=== PATIENT | female | born 1990 | race Caucasian/White ===

== ENCOUNTER 2018-07-16 20:06 | Emergency (ER) | payer SELFPAY ==
[~2018-07-16] VITALS: Ht 157.5 cm; Wt 99.8 kg
[2018-07-16 20:28] VITALS: BP 126/83
--- NOTE | 2018-07-16 21:02 | PHYS DOC ---
Adult General Chief Complaint Chief Complaint: COUGH HPI HPI Patient is a 28 year old female who presents for evaluation of sore throat since waking up this morning. She reports has had a cough over the last several days. States she has felt herself wheeze over the last couple of days, she smokes cigarettes. Denies fevers or vomiting. Review of Systems Review of Systems Constitutional: Denies fever or chills [] Eyes: Denies change in visual acuity, redness, or eye pain [] HENT: Reports sore throat [] Respiratory: Reports cough Cardiovascular: No additional information not addressed in HPI [] GI: Denies abdominal pain, nausea, vomiting, bloody stools or diarrhea [] Musculoskeletal: Denies back pain or joint pain [] Integument: Denies rash or skin lesions [] Neurologic: Denies headache, focal weakness or sensory changes [] Endocrine: Denies polyuria or polydipsia [] All other systems were reviewed and found to be within normal limits, except as documented in this note. Physical Exam Physical Exam Constitutional: Well developed, well nourished, no acute distress, non-toxic appearance. [] HENT: Normocephalic, atraumatic, oropharynx erythematous, bilateral tonsillar swelling, no exudates] Neck: Normal range of motion, no tenderness, supple, no stridor. [] Cardiovascular:Heart rate regular rhythm, no murmur [] Lungs & Thorax: Bilateral breath sounds clear to auscultation [] Skin: Warm, dry, no erythema, no rash. [] Neurologic: Alert and oriented X 3, normal motor function, normal sensory function, no focal deficits noted. [] Psychologic: Affect normal, judgement normal, mood normal. [] Current Patient Data Lab Values RAPID STREP POSITIVE EKG EKG [] Radiology/Procedures Radiology/Procedures [] Course & Med Decision Making Course & Med Decision Making Pertinent Labs and Imaging studies reviewed. (See chart for details) [Strep positive, patient placed on antibiotics. Stable for discharge home.] Dragon Disclaimer Dragon Disclaimer This electronic medical record was generated, in whole or in part, using a voice recognition dictation system. Departure Departure Impression: Primary Impression: Strep pharyngitis Disposition: 01 HOME, SELF-CARE Condition: STABLE Referrals: NO PCP (PCP) Patient Instructions: Strep Throat Scripts Amoxicillin (AMOXICILLIN) 500 Mg Tablet 1 TAB PO TID, #30 TAB Prov: TOMMY BERRY APRN 07/16/18 TOMMY BERRY APRN Jul 16, 2018 21:02
[2018-07-16] MEDS ORDERED: AMOX500T PO (21:12)
== END 2018-07-16 21:25 | disposition home or self-care (01) ==
LOC: ER 20:06
DX: J02.0 Streptococcal pharyngitis (principal); B95.5 Unspecified streptococcus as the cause of diseases classified elsewhere; F17.210 Nicotine dependence, cigarettes, uncomplicated
CPT/HCPCS: 87880; 99283

== ENCOUNTER 2018-10-16 17:32 | Inpatient (IN) | payer SELFPAY ==
[~2018-10-16] VITALS: Ht 157.5 cm; Wt 117.0 kg
[~2018-10-16 17:32] MED LIST: AMOX500T PO
[2018-10-16] MEDS ORDERED: HYDROcodone/APAP 5/325MG 1 TAB TABLET PO ONE (18:00)
[2018-10-16] MEDS ORDERED: MORPHINE SULFATE 4 MG/ML VIAL. ONE (18:09)
[2018-10-16] MEDS ORDERED: MORPHINE SULFATE 2 MG/ML VIAL. IV ONE (18:15)
[2018-10-16] MEDS ORDERED: MORPHINE SULFATE 4 MG/ML VIAL. IV ONE (18:15)
--- NOTE | 2018-10-16 19:19 | PHYS DOC ---
Past Medical History Past Medical History: Asthma Additional Past Medical Histor: PVC Additional Past Surgical Histo: HEART ABLATION Alcohol Use: Occasionally Drug Use: None Adult General Chief Complaint Chief Complaint: MECHANICAL FALL HPI HPI Patient is a 28 year old female who presents with was at the skating rink when she fell and landed on her left leg. Patient is complaining of left mid and lower ba pain. Review of Systems Review of Systems Constitutional: Denies fever or chills [] Eyes: Denies change in visual acuity, redness, or eye pain [] HENT: Denies nasal congestion or sore throat [] Respiratory: Denies cough or shortness of breath [] Cardiovascular: No additional information not addressed in HPI [] GI: Denies abdominal pain, nausea, vomiting, bloody stools or diarrhea [] : Denies dysuria or hematuria [] Musculoskeletal: Left lower leg pain. Denies back pain or joint pain [] Integument: Denies rash or skin lesions [] Neurologic: Denies headache, focal weakness or sensory changes [] Endocrine: Denies polyuria or polydipsia [] All other systems were reviewed and found to be within normal limits, except as documented in this note. Current Medications Current Medications Current Medications Medications (Trade) Dose Ordered Sig/Lorenza Start Time Stop Time Status Last Admin Dose Admin Acetaminophen/ Hydrocodone Bitart (Lortab 5/325) 1 tab 1X ONCE 10/16/18 18:00 10/16/18 18:19 DC Morphine Sulfate (Morphine Sulfate) 2 mg 1X ONCE 10/16/18 18:15 10/16/18 18:16 DC Allergies Allergies Allergies Coded Allergies Type Severity Reaction Last Updated Verified No Known Drug Allergies 07/16/18 No Physical Exam Physical Exam Constitutional: Well developed, well nourished, no acute distress, non-toxic appearance. [] HENT: Normocephalic, atraumatic, bilateral external ears normal, oropharynx moist, no oral exudates, nose normal. [] Eyes: PERRLA, EOMI, conjunctiva normal, no discharge. [] Neck: Normal range of motion, no tenderness, supple, no stridor. [] Cardiovascular:Heart rate regular rhythm, no murmur [] Lungs & Thorax: Bilateral breath sounds clear to auscultation [] Abdomen: Bowel sounds normal, soft, Left tib fib pain tenderness, no masses, no pulsatile masses. [] Skin: Warm, dry, no erythema, no rash. [] Back: No tenderness, no CVA tenderness. [] Extremities: No tenderness, no cyanosis, no clubbing, ROM intact, no edema. [] Neurologic: Alert and oriented X 3, normal motor function, normal sensory function, no focal deficits noted. [] Psychologic: Affect normal, judgement normal, mood normal. [] Current Patient Data Vital Signs Vital Signs Date Time Temp Pulse Resp B/P (MAP) Pulse Ox O2 Delivery O2 Flow Rate FiO2 10/16/18 19:00 68 20 99 10/16/18 17:43 100.3 136/73 (94) Room Air 100.3 EKG EKG [] Radiology/Procedures Radiology/Procedures TIB FIB, ANKLE Course & Med Decision Making Course & Med Decision Making Patient is a 28 year old female who presents with was at the skating rink when she fell and landed on her left leg. Patient is complaining of left mid and lower ba pain. Patient has range of motion in her ankle and can wiggle her toes but is painful. Patient has tenderness at mid tibia and at lower proximal fibula area. No deformity seen or felt. She is rating her pain a 10 out of 10 and she is tearful. There is no swelling or bruising seen to the leg. Patient has strong intact pedal pulse. Cap refill is less than 3 seconds. Patient denies any numbness or tingling. Skin pink warm and dry. X-ray shows a 1/3 spiral fracture of distal tibia and a spiral fracture of the proximal Fibula. Xray read by Dr Avendaño. 1944: Spoken to Dr. Loyd he states to admit the patient to him and he is putting in admit orders. Dr. Loyd states to place a long leg splint. Dragon Disclaimer Dragon Disclaimer This electronic medical record was generated, in whole or in part, using a voice recognition dictation system. Departure Departure Impression: Primary Impression: Tibia/fibula fracture Disposition: ADMITTED INPATIENT Admitting Physician: Other Condition: STABLE Referrals: NO PCP (PCP) Problem Qualifiers Primary Impression: Tibia/fibula fracture Encounter type: initial encounter Fracture type: closed Laterality: left Qualified Codes: S82.202A - Unspecified fracture of shaft of left tibia, initial encounter for closed fracture; S82.402A - Unspecified fracture of shaft of left fibula, initial encounter for closed fracture CAMRYN HOLCOMB APRN Oct 16, 2018 19:19
[2018-10-16] MEDS ORDERED: ONDANSETRON PF 4 MG/2 ML VIAL. IV PRN (20:00)
[2018-10-16] MEDS ORDERED: MAGNESIUM HYDROXIDE 2,400 MG/30 ML ORAL.SUSP. PO PRN (20:00)
[2018-10-16] MEDS ORDERED: ZOLPIDEM 5 MG TABLET. PO PRN (20:00)
[2018-10-16] MEDS ORDERED: oxyCODONE/APAP 5/325 1 TAB TABLET PO PRN (20:00)
[2018-10-16] MEDS ORDERED: 0.9 % SODIUM CHLORIDE 10 ML DISP.SYRIN. IV PRN (20:00)
[2018-10-16] MEDS ORDERED: BISACODYL 10 MG SUPP.RECT. PR PRN (20:00)
[2018-10-16] MEDS ORDERED: DEXTROSE 50% 25 GM / 50ML DISP.SYRIN. IV PRN (20:00)
[2018-10-16] MEDS ORDERED: MORPHINE SULFATE 4 MG/ML VIAL. IV PRN (20:00)
--- NOTE | 2018-10-16 20:10 | PDOC ---
Provider Note Provider Note S82.242A Displaced spiral fracture of shaft of left tibia, initial encounter for closed fracture S82.442A Displaced spiral fracture of shaft of left fibula, initial encounter for closed fracture THEODORA CANCINO MD Oct 16, 2018 20:10
--- NOTE | 2018-10-16 20:20 | RAD ---
2 view left ankle 10/16/2017 Clinical indication: Left ankle injury and pain. COMPARISON: None. FINDINGS: There is a spiral fracture of the junction distal 3rd tibial diaphysis with mild posterior displacement of the dominant distal fracture fragment. There is a nonstandard AP view of the right ankle with no definite ankle fracture. Mild tibiotalar osteoarthritis with dorsal osteophytes. IMPRESSION: 1. Mildly displaced spiral fracture of the distal tibia. 2. Somewhat limited evaluation of the ankle due to nonstandard AP view, however no definite ankle fracture. Electronically signed by: Venancio Wiggins MD (10/16/2018 8:17 PM) [facility]
--- NOTE | 2018-10-16 20:28 | RAD ---
2 view left tibia and fibula 10/16/2017 CLINICAL INDICATION: Left calf injury and pain. COMPARISON: Same day left ankle. FINDINGS: There is an oblique fracture of the proximal fibular diaphysis with mild anterior displacement and posterior angulation of the distal fracture fragment. IMPRESSION: Mildly displaced and angulated fracture of the proximal fibula. Electronically signed by: Venancio Wiggins MD (10/16/2018 8:25 PM) [facility]
[2018-10-16 20:45] VITALS: BP 130/50
--- NOTE | 2018-10-16 21:00 | NUR ---
Received patient from ER to room 442 per cart. Admitting dx: fracture of left tib/fib. Patient states she was rolling skating with family and she heard a pop in her leg and she fell. Patient is allergic to mushrooms. Patient has NKDA. Patient is A&Ox4. Patient is very emotional and crying on admission. 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 Left leg has splint on and leg is elevated on pillow. Patient has a purewick in place for urine elimination. Patient states that leg is too painful to use bedpan. NPO. Possible surgery on Wednesday. Will continue to monitor.
[2018-10-16] MEDS: KETOROLAC 30 MG/ML VIAL. IV SCH (21:55)
[2018-10-16 22:29] LABS: HEMATOCRIT 38.4 % (36.0-47.0); HEMOGLOBIN 12.6 g/dL (12.0-15.5); RED BLOOD COUNT 4.45 x10^6/uL (3.50-5.40); RED CELL DISTRIBUTION WIDTH 13.1 % (11.5-14.5); WHITE BLOOD COUNT 18.4 x10^3/uL (4.0-11.0)
[2018-10-16 22:49] LABS: ALBUMIN 3.5 g/dL (3.4-5.0); ALBUMIN/GLOBULIN RATIO 0.9 (1.0-1.7); CALCIUM 8.9 mg/dL (8.5-10.1); CREATININE 0.7 mg/dL (0.6-1.0); GFR 101.1; POTASSIUM 3.8 mmol/L (3.5-5.1); TOTAL BILIRUBIN 0.4 mg/dL (0.2-1.0); TOTAL PROTEIN 7.2 g/dL (6.4-8.2)
[2018-10-16] MEDS: DOCUSATE SODIUM 100 MG CAPSULE. PO SCH (22:52)
[2018-10-16] MEDS: oxyCODONE/APAP 5/325 1 TAB TABLET PO PRN (22:53)
[2018-10-16 23:00] VITALS: BP 136/64
[2018-10-16] MEDS: fentaNYL PF VIAL 100 MCG/2 ML VIAL IV PRN (23:30)
[2018-10-16 23:59] LABS: U PREG PATIENT NEGATIVE (NEG)
[2018-10-17] VITALS (12 sets, daily range): BP systolic 95–152; BP diastolic 56–89
[2018-10-17] MEDS: KETOROLAC 30 MG/ML VIAL. IV SCH ×5 (02:00→18:00)
[2018-10-17] MEDS: fentaNYL PF VIAL 100 MCG/2 ML VIAL IV PRN ×9 (03:42→23:12)
[2018-10-17] MEDS ORDERED: MORPHINE SULFATE 4 MG/ML VIAL. IV PRN (06:45)
[2018-10-17] MEDS ORDERED: fentaNYL PF VIAL 100 MCG/2 ML VIAL IV PRN (06:45)
[2018-10-17] MEDS ORDERED: IV RINGERS,LACTATED 1000ML 1,000 ML IV SCH (06:45)
[2018-10-17] MEDS ORDERED: LIDOCAINE 1% PF 2 ML VIAL. ID PRN (06:45)
[2018-10-17] MEDS ORDERED: ONDANSETRON PF 4 MG/2 ML VIAL. IV PRN (06:45)
[2018-10-17] MEDS ORDERED: HYDROmorphone 2 MG/ML VIAL IV PRN (06:45)
[2018-10-17] MEDS ORDERED: PROCHLORPERAZINE 10 MG/2 ML VIAL. IV PRN (06:45)
[2018-10-17] MEDS: DOCUSATE SODIUM 100 MG CAPSULE. PO SCH ×2 (09:00→20:55)
--- NOTE | 2018-10-17 09:24 | NUR ---
SW reviewed pt's medical chart and evaluated for dc needs. Pt is from home and was admitted for a tibia fibula fracture. PT/OT has not been ordered and there are no dc needs at this time. Pt does not have insurance and will not qualify for services unless she can pay out of pocket. SW will be available if pt's condition changes and there is a need for services.
[2018-10-17] MEDS ORDERED: ONDANSETRON PF 4 MG/2 ML VIAL. ONE (13:31)
[2018-10-17] MEDS ORDERED: LIDOCAINE 2% PF 5 ML VIAL. ONE (13:31)
[2018-10-17] MEDS ORDERED: DEXAMETHASONE SOD PHOS 20 MG/5 ML VIAL. ONE (13:31)
[2018-10-17] MEDS ORDERED: ROCURONIUM 50 MG/5 ML VIAL. ONE (13:31)
[2018-10-17] MEDS ORDERED: PROPOFOL 20 ML IV ONE (13:31)
[2018-10-17] MEDS ORDERED: SUCCINYLCHOLINE 200 MG/10 ML VIAL. ONE (13:32)
[2018-10-17] MEDS ORDERED: diphenhydrAMINE 50 MG/ML VIAL IVP PRN (15:45)
--- NOTE | 2018-10-17 16:30 | NUR ---
Pt to OR by bed. Family at bedside but will not be waiting downstairs. Report given to LINCOLN Moon. Clamped LR bag sent with Pt. Pt decided to sign consents and she did so right before being transferred downstairs.
--- NOTE | 2018-10-17 17:06 | PDOC1 ---
History and Physical Date of Admission Date of Admission DATE: 10/17/18 TIME: 17:01 Identification/Chief Complaint Chief Complaint Left leg pain Source Source: Chart review, Patient History of Present Illness History of Present Illness 28-year-old who fell roller skating and injured her left leg. X-rays show a displaced tib-fib fracture. She denies other injury. Past Medical History Past Medical History She had a cardiac ablation remotely. Past Surgical History Past Surgical History Cardiac ablation Family History Family History She is not currently employed. Her last job was at a [employer] Family History: Diabetes Social History Smoke: <1 pack per day Current Problem List Problem List Problems Medical Problems: (1) Tibia/fibula fracture Status: Acute Current Medications Current Medications Current Medications Acetaminophen/ Hydrocodone Bitart (Lortab 5/325) 1 tab 1X ONCE PO ; Start 10/16 at 18:00; Stop 10/16/18 at 18:19; Status DC Morphine Sulfate (Morphine Sulfate) 4 mg STK-MED ONCE .ROUTE ; Start 10/16/18 at 18:09; Stop 10/16/18 at 18:10; Status DC Morphine Sulfate (Morphine Sulfate) 2 mg 1X ONCE IV Last administered on at 18:15; Start 10/16/18 at 18:15; Stop 10/16/18 at 18:16; Status DC Morphine Sulfate (Morphine Sulfate) 2 mg 1X ONCE IV Last administered on at 20:12; Start 10/16/18 at 18:15; Stop 10/16/18 at 18:16; Status DC Morphine Sulfate (Morphine Sulfate) 2 mg PRN Q1HR PRN IV PAIN; Start 10/16/18 at 20:00 Fentanyl Citrate (Fentanyl 2ml Vial) 50 mcg PRN Q1HR PRN IV PAIN Last administered on 10/17/18at 14:34; Start 10/16/18 at 20:00 Ondansetron HCl (Zofran) 4 mg PRN Q6HRS PRN IV NAUSEA/VOMITING; Start 10/16/18 at 20:00 Lorazepam (Ativan) 0.5 mg PRN Q4HRS PRN IV ANXIETY / AGITATION; Start 10/16/18 at 20:00 Docusate Sodium (Colace) 100 mg BID PO Last administered on 10/16/18at 22:52; Start 10/16/18 at 21:00 Magnesium Hydroxide (Milk Of Magnesia) 2,400 mg PRN DAILY PRN PO CONSTIPATION; Start 10/16/18 at 20:00 Bisacodyl (Dulcolax Supp) 10 mg PRN DAILY PRN TX CONSTIPATION; Start 10/16/18 at 20:00 Zolpidem Tartrate (Ambien) 5 mg PRN QHS PRN PO INSOMNIA; Start 10/16/18 at 20: 00 Sodium Chloride (Normal Saline Flush) 3 ml QSHIFT PRN IV AFTER MEDS AND BLOOD DRAWS; Start 10/16/18 at 20:00 Dextrose (Dextrose 50%-Water Syringe) 12.5 gm PRN Q15MIN PRN IV SEE COMMENTS; Start 10/16/18 at 20:00 Cefazolin Sodium/ Dextrose 50 ml @ 100 mls/hr 1X PREOP PRN IV SEE COMMENTS; Start 10/16/18 at 20:00; Stop 10/17/18 at 19:59 Oxycodone/ Acetaminophen (Percocet 5/325) 1 tab PRN Q4HRS PRN PO PAIN; Start at 20:00 Ketorolac Tromethamine (Toradol 30mg Vial) 30 mg Q6H IV Last administered on at 21:55; Start 10/16/18 at 20:00; Stop 10/17/18 at 03:18; Status DC Oxycodone/ Acetaminophen (Percocet 5/325) 2 tab PRN Q4HRS PRN PO PAIN Last administered on 10/16/18at 22:53; Start 10/16/18 at 20:30 Ketorolac Tromethamine (Toradol 30mg Vial) 30 mg Q6H IV Last administered on at 12:09; Start 10/17/18 at 04:00; Stop 10/17/18 at 16:29; Status DC Ondansetron HCl (Zofran) 4 mg PRN Q6HRS PRN IV NAUSEA/VOMITING; Start 10/17/18 at 06:45; Stop 10/18/18 at 06:44 Fentanyl Citrate (Fentanyl 2ml Vial) 25 mcg PRN Q5MIN PRN IV MILD PAIN; Start 10/17/18 at 06:45; Stop 10/18/18 at 06:44 Fentanyl Citrate (Fentanyl 2ml Vial) 50 mcg PRN Q5MIN PRN IV MODERATE TO SEVERE PAIN; Start 10/17/18 at 06:45; Stop 10/18/18 at 06:44 Morphine Sulfate (Morphine Sulfate) 1 mg PRN Q10MIN PRN IV SEVERE PAIN; Start 10/17/18 at 06:45; Stop 10/18/18 at 06:44 Ringer's Solution 1,000 ml @ 30 mls/hr Q24H IV Last administered on 10/17/18at 12:23; Start 10/17/18 at 06:45; Stop 10/17/18 at 06:46; Status DC Lidocaine HCl (Xylocaine-Mpf 1% 2ml Vial) 2 ml 1X PRN PRN ID IV START; Start at 06:45; Stop 10/18/18 at 06:44 Hydromorphone HCl (Dilaudid) 0.5 mg PRN Q10MIN PRN IV SEV PAIN, Second choice; Start 10/17/18 at 06:45; Stop 10/18/18 at 06:44 Prochlorperazine Edisylate (Compazine) 5 mg PACU PRN PRN IV NAUSEA, MRX1; Start 10/17/18 at 06:45; Stop 10/18/18 at 06:44 Dexamethasone Sodium Phosphate (Decadron) 20 mg STK-MED ONCE .ROUTE ; Start at 13:31; Stop 10/17/18 at 13:32; Status DC Ondansetron HCl (Zofran) 4 mg STK-MED ONCE .ROUTE ; Start 10/17/18 at 13:31; Stop 10/17/18 at 13:32; Status DC Lidocaine HCl (Lidocaine Pf 2% Vial) 5 ml STK-MED ONCE .ROUTE ; Start 10/17/18 at 13:31; Stop 10/17/18 at 13:32; Status DC Propofol 20 ml @ As Directed STK-MED ONCE IV ; Start 10/17/18 at 13:31; Stop at 13:32; Status DC Rocuronium [place] (Zemuron) 50 mg STK-MED ONCE .ROUTE ; Start 10/17/18 at 13:31 ; Stop 10/17/18 at 13:32; Status DC Succinylcholine Chloride (Anectine) 200 mg STK-MED ONCE .ROUTE ; Start 10/17/18 at 13:32; Stop 10/17/18 at 13:33; Status DC Diphenhydramine HCl (Benadryl) 25 mg PRN Q6HRS PRN IVP ITCHING Last administered on 10/17/18at 16:23; Start 10/17/18 at 15:45 Ketorolac Tromethamine (Toradol 30mg Vial) 30 mg Q6H IV ; Start 10/17/18 at 18: 00; Stop 10/18/18 at 18:01 Active Scripts Active Allergies Allergies: Uncoded Allergies: mushrooms (Allergy, Unknown, 10/17/18) ROS General: No: Chills, Night Sweats Eyes: No Blurry vision, No Decreased vision, No Double vision HEENT: No: Heacaches, Visual Changes Breast: Other (has pierced nipples) Respiratory: YES: Shortness of breath ("because I'm overweight"); No: Cough, Pleuritic Pain Cardiovascular: No Chest Pain, No Palpitations (no current palpitations. Had them remotely before her ablation) Gastrointestinal: No Diarrhea, No Constipation Genitourinary: No Hematuria Physical Exam General: Alert, Cooperative HEENT: Atraumatic Lungs: Normal air movement Heart: RRR Abdomen: Soft Extremities: No clubbing, No cyanosis, Normal pulses, Other (tenderness left leg. Splint intact red toes have intact sensation and motion. Slight swelling of the tibia and fibula, but no evidence of compartment syndrome.) Skin: No rashes, No breakdown, No significant lesion, Other (skin reported as intact over the fracture) Neuro: Normal speech, Normal tone, Sensation intact Psych/Mental Status: Mental status NL, Mood NL Vitals Vitals Vital Signs Date Time Temp Pulse Resp B/P (MAP) Pulse Ox O2 Delivery O2 Flow Rate FiO2 10/17/18 15:04 Room Air 10/17/18 15:00 98.4 65 18 114/58 (76) 97 98.4 Labs Labs Laboratory Tests Test 10/16/18 22:00 10/16/18 23:50 White Blood Count 18.4 x10^3/uL (4.0-11.0) Red Blood Count 4.45 x10^6/uL (3.50-5.40) Hemoglobin 12.6 g/dL (12.0-15.5) Hematocrit 38.4 % (36.0-47.0) Mean Corpuscular Volume 86 fL (79-100) Mean Corpuscular Hemoglobin 28 pg (25-35) Mean Corpuscular Hemoglobin Concent 33 g/dL (31-37) Red Cell Distribution Width 13.1 % (11.5-14.5) Platelet Count 266 x10^3/uL (140-400) Sodium Level 141 mmol/L (136-145) Potassium Level 3.8 mmol/L (3.5-5.1) Chloride Level 104 mmol/L (98-107) Carbon Dioxide Level 27 mmol/L (21-32) Anion Gap 10 (6-14) Blood Urea Nitrogen 11 mg/dL (7-20) Creatinine 0.7 mg/dL (0.6-1.0) Estimated GFR (Cockcroft-Gault) 101.1 BUN/Creatinine Ratio 16 (6-20) Glucose Level 94 mg/dL (70-99) Calcium Level 8.9 mg/dL (8.5-10.1) Total Bilirubin 0.4 mg/dL (0.2-1.0) Aspartate Amino Transf (AST/SGOT) 19 U/L (15-37) Alanine Aminotransferase (ALT/SGPT) 24 U/L (14-59) Alkaline Phosphatase 69 U/L (46-116) Total Protein 7.2 g/dL (6.4-8.2) Albumin 3.5 g/dL (3.4-5.0) Albumin/Globulin Ratio 0.9 (1.0-1.7) 25-Hydroxy Vitamin D Total 14.8 ng/mL (30-100) Urine Test Negative (NEG) Laboratory Tests Test 10/16/18 22:00 10/16/18 23:50 White Blood Count 18.4 x10^3/uL (4.0-11.0) Red Blood Count 4.45 x10^6/uL (3.50-5.40) Hemoglobin 12.6 g/dL (12.0-15.5) Hematocrit 38.4 % (36.0-47.0) Mean Corpuscular Volume 86 fL (79-100) Mean Corpuscular Hemoglobin 28 pg (25-35) Mean Corpuscular Hemoglobin Concent 33 g/dL (31-37) Red Cell Distribution Width 13.1 % (11.5-14.5) Platelet Count 266 x10^3/uL (140-400) Sodium Level 141 mmol/L (136-145) Potassium Level 3.8 mmol/L (3.5-5.1) Chloride Level 104 mmol/L (98-107) Carbon Dioxide Level 27 mmol/L (21-32) Anion Gap 10 (6-14) Blood Urea Nitrogen 11 mg/dL (7-20) Creatinine 0.7 mg/dL (0.6-1.0) Estimated GFR (Cockcroft-Gault) 101.1 BUN/Creatinine Ratio 16 (6-20) Glucose Level 94 mg/dL (70-99) Calcium Level 8.9 mg/dL (8.5-10.1) Total Bilirubin 0.4 mg/dL (0.2-1.0) Aspartate Amino Transf (AST/SGOT) 19 U/L (15-37) Alanine Aminotransferase (ALT/SGPT) 24 U/L (14-59) Alkaline Phosphatase 69 U/L (46-116) Total Protein 7.2 g/dL (6.4-8.2) Albumin 3.5 g/dL (3.4-5.0) Albumin/Globulin Ratio 0.9 (1.0-1.7) 25-Hydroxy Vitamin D Total 14.8 ng/mL (30-100) Urine Test Negative (NEG) VTE Prophylaxis Ordered VTE Prophylaxis Devices: Yes VTE Pharmacological Prophylaxi: Yes Assessment/Plan Assessment/Plan Closed left tib-fib fracture, spiral fractures. I recommended intramedullary nail of her spiral tibial shaft fracture. The fibula fracture is generally well aligned after tibia fracture fixation, and does not require fixation. There are high risks of proximal fibular fixation such as peroneal nerve injury. We spoke about the risks of nonunion or malunion, and I advised her to stop smoking which will help the bone healing. We discussed other risks of surgery such as bleeding, blood clots, infection, neurovascular injury, compartment syndrome, potential need for hardware removal, or other potential surgical or anesthetic complications. All of her questions about surgery were answered and she desires to proceed. The surgical site was marked by me. THEODORA CANCINO MD Oct 17, 2018 17:06
[2018-10-17] MEDS ORDERED: BUPIVACAINE-EPI 0.25%-1:200000 MPF 30 ML VIAL. ONE (17:24)
[2018-10-17] MEDS ORDERED: fentaNYL PF VIAL 100 MCG/2 ML VIAL ONE (17:30)
[2018-10-17] MEDS ORDERED: KETAMINE HCL IN NACL, ISO-OSM 50 MG/5 ML SYRINGE ONE (17:54)
[2018-10-17] MEDS ORDERED: MORPHINE SULFATE 10 MG/ML VIAL. ONE (18:40)
--- NOTE | 2018-10-17 19:13 | PDOC4 ---
Operative Note Operative Note Date of Procedure: October 17, 2018 Pre-Op Diagnosis: Displaced spiral fracture of shaft of left tibia, initial encounter for closed fracture, S82.242A Post-Op Diagnosis: Same Procedure: Treatment of tibial shaft fracture (and associated fibula fracture) by intramedullary implant with interlocking screws CPT 23413 Surgeon: Theodora Loyd MD [employer] Driver: Valeria RODRIGUEZ Anesthesia: General EBL: 200 mL Specimens Obtained: none Complications: none Drains: none Implants: [place] T2 tibial nail system, tibial nail, standard, 9 x 330 mm. Cross locking screws 5.0 x 42.5 mm, 5.0 x 60 mm, 5.0 x 37.5 mm, 5.0 x 37.5 mm, 5.0 x 45 mm Indications for Procedure: The patient is a 28-year-old who fractured her left leg while rollerskating. X-rays showed a displaced tibial shaft fracture and proximal fibular fracture also displaced. The injury was closed. I recommended intramedullary nailing. We discussed the risks and benefits. We discussed potential risks of infection, blood clots, malunion or nonunion, need for hardware removal, compartment syndrome, or other potential surgical or anesthetic complications. All of her questions about surgery were answered and she desired to proceed. A written consent was obtained. Procedure in Detail: The patient was identified in the preoperative holding area. The correct left lower extremity was marked by me. The patient was taken to the operating room where general anesthesia was used. The patient was positioned supine on the operating table. Preoperative antibiotics were given intravenously. A tourniquet was used on the upper thigh but never inflated a timeout procedure was performed. The limb was prepared in sterile fashion with surgical prep solution. Sterile drapes were applied. An impervious stockinette was placed over the foot and toes. The large image intensifier was used throughout the procedure, and all the images were interpreted intraoperatively by me. A preliminary reduction was performed, with longitudinal traction, slight rotation, and slight angulation along with slight anteromedial stress all held later by Ms. Ji, when reaming was performed. A longitudinal incision was used over the patellar tendon. The patella tendon was retracted laterally. Bovie electrocautery was used for hemostasis. An injection was used in the skin edges of 0.25% bupivacaine with epinephrine. The entry Awl was used to enter the proximal tibia, and the entry point was confirmed in the AP and lateral planes on the image intensifier. A beaded guidewire was placed. Cony held the reduction, and the guidewire was placed across the fracture site. The guidewire was measured for length. Sequential reaming was performed over the guidewire with the fracture held reduced by Cony , and using the tissue protector. I reamed up to size 11 mm for the 9 mm nail, and had intramedullary chatter at the isthmus with the 11 mm reamer. The 9 x 330 mm nail was chosen and opened. Copious saline irrigation was used and outer gloves were changed. The nail was attached to the nail adapter and strike plate, and placed down the intramedullary canal without difficulty. Mallet blows were used for final placement, confirmed on the image intensifier proximally and distally. I back slapped the nail about 5 mm for eventual compression across the fracture site. The targeting arm was applied and then 2 oblique static cross lock screws were placed through the targeting arm. Length of the screws and positioned in the nail was confirmed with the image intensifier, and one of the screws was changed for a better length. The nail adapter was removed by loosening the nail holding screw, and the targeting arm was also removed. Compression was now applied distally by gentle blows on the heel. The image intensifier showed satisfactory reduction and alignment. The distal cross locking screws were placed using a freehand technique, and the image intensifier. I placed 2 medial to lateral screws and one anterior to posterior screw for fixation of this distal fracture. Biplanar image intensifier view showed satisfactory hardware placement and satisfactory reduction of the fracture. The fibula fracture reduction length and rotational alignment was also confirmed and appear satisfactory. Copious saline irrigation was used in all of the incisions. Bovie electrocautery was used a final time for hemostasis. The incisions were closed with #1 Vicryl in the peripatellar fascia. 2-0 Vicryl was used in the subcutaneous cutaneous tissues. [place] were placed in the skin. Additional 0.25% bupivacaine with epinephrine was injected into the skin edges. Xeroform and sterile dressings were applied. Needle and sponge counts were correct. There were no apparent complications. THEODORA LOYD MD Oct 17, 2018 19:12
--- NOTE | 2018-10-17 20:03 | NUR ---
Patient returned from surgery via bed to room 442. Patient drowsy, but arousable by name. 2L NC O2. Pt c/o pain in left leg 12/10 and moaning in pain. Left leg elevated on one pillow, frank wrap and dressing clean, dry and intact. SCD on Right Leg, IVF currently infusing. Offered ice water. Frequent VS started at this time. Will continue to manage pain, and monitor VS. RN called Dr. Mccain (correctional casework specialist for [facility]) to obtain diet orders. Advised ADAT. Will continue to monitor closely.
[2018-10-17] MEDS: oxyCODONE/APAP 5/325 1 TAB TABLET PO PRN (20:55)
[2018-10-18] VITALS (7 sets, daily range): BP systolic 107–145; BP diastolic 58–84
[2018-10-18] MEDS: KETOROLAC 30 MG/ML VIAL. IV SCH ×4 (00:08→17:07)
[2018-10-18] MEDS: fentaNYL PF VIAL 100 MCG/2 ML VIAL IV PRN ×2 (01:42→17:54)
[2018-10-18] MEDS: oxyCODONE/APAP 5/325 1 TAB TABLET PO PRN ×5 (05:34→23:47)
[2018-10-18] MEDS ORDERED: ERGOCALCIFEROL (VITAMIN D2) 50,000 UNIT CAPSULE. PO SCH (09:00)
[2018-10-18] MEDS: CHOLECALCIFEROL (VITAMIN D3) 5,000 UNIT CAPSULE PO SCH (09:09)
[2018-10-18] MEDS: DOCUSATE SODIUM 100 MG CAPSULE. PO SCH ×2 (09:09→21:52)
--- NOTE | 2018-10-18 18:30 | NUR ---
Pt. stated she reached under top portion of L leg dressing to scratch and stated she scratched a staple. Pt. stated since then area has been painful and burning. Top portion of alfred visualized and all upper alfred appear intact. Pt. given ice pack to L leg.
[2018-10-19 03:41] VITALS: BP 155/67
[2018-10-19] MEDS: oxyCODONE/APAP 5/325 1 TAB TABLET PO PRN ×3 (06:32→15:13)
[2018-10-19 07:00] VITALS: BP 113/62
[2018-10-19] MEDS: DOCUSATE SODIUM 100 MG CAPSULE. PO SCH (09:03)
[2018-10-19] MEDS: CHOLECALCIFEROL (VITAMIN D3) 5,000 UNIT CAPSULE PO SCH (09:03)
--- NOTE | 2018-10-19 10:00 | NUR ---
This nurse spoke with Dr. Loyd about potential discharge, Dr. Loyd will be rounding later today. This nurse will continue to monitor. CM notified.
[2018-10-19 11:00] VITALS: BP 115/67
--- NOTE | 2018-10-19 11:17 | NUR ---
SW following, discussed with RN. RN advised pt is waiting on crutches which have been arranged. No SW needs at this time. SW will continue to follow.
--- NOTE | 2018-10-19 14:31 | PDOC ---
PROGRESS NOTES Subjective Subjective Doing well today. Khris usually makes rounds on Tuesdays, I'm not sure why she wasn't seen yesterday. She's nervous but pain is controlled. Objective Vital Signs Vital Signs Date Time Temp Pulse Resp B/P (MAP) Pulse Ox O2 Delivery O2 Flow Rate FiO2 10/19/18 11:40 97 Room Air 10/19/18 07:00 97.9 82 20 113/62 (79) 97.9 10/18/18 00:20 2.0 Physical Exam Dressings changed. Stapled incisions dry and intact. No sign of infection, bleeding, DVT or compartment syndrome. No ecchymosis. Calf still with moderate circumferential swelling, but compartments are soft and nontender. Sensation intact at foot, and able to DF and PF toes slightly, but patient very apprehensive about alfred, incisions, motion. Got lightheaded when she saw the intact dry incisions. Assessment Assessment POD 2 after IM nail tibia fracture Plan Plan of Care Discharge to home. NWB. Will need walker to ambulate NWB. THEODORA CANCINO MD Oct 19, 2018 14:31
[2018-10-19] MEDS ORDERED: ASPI325T11 PO (14:43)
[2018-10-19] MEDS ORDERED: CHOL500016 PO (14:43)
[2018-10-19] MEDS ORDERED: OXYC1TAB15 PO (14:43)
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
--- NOTE | 2018-10-19 15:23 | NUR ---
This nurse went over discharge instructions with this patient, discussed dressing ok to be open to air after 7 days, follow up appt. made, medications discussed and side effects. This nurse answered any and all questions at the bedside with patient, and family. This nurse will have [employer] assisted patient out via wheelchair.
--- NOTE | 2018-10-19 15:40 | NUR ---
Walker provided for this patient, education provided as well. This nurse will continue to monitor.
--- NOTE | 2018-10-19 15:55 | NUR ---
This patient was taken out via wheelchair, with [employer] assist. All belongings collected and returned to patient.
== END 2018-10-19 15:55 | disposition home or self-care (01) | DRG 494 ==
LOC: ER 17:32 → 4 NORTH 19:46
PROVIDERS: ADMIT Orthopaedic Surgery; ATTEND Orthopaedic Surgery
PROC: 2W3RX1Z Immobilization of Left Lower Leg using Splint (ICD-10-PCS; principal; 2018-10-16)
PROC: 0QSK36Z Reposition Left Fibula with Intramedullary Internal Fixation Device, Percutaneous Approach (ICD-10-PCS; 2018-10-17)
PROC: 0QSH36Z Reposition Left Tibia with Intramedullary Internal Fixation Device, Percutaneous Approach (ICD-10-PCS; 2018-10-17)
DX: S82.242A Displaced spiral fracture of shaft of left tibia, initial encounter for closed fracture (principal); S82.442A Displaced spiral fracture of shaft of left fibula, initial encounter for closed fracture; F17.210 Nicotine dependence, cigarettes, uncomplicated; J45.909 Unspecified asthma, uncomplicated; V00.121A Fall from non-in-line roller-skates, initial encounter; Y93.51 Activity, roller skating (inline) and skateboarding; Y92.89 Other specified places as the place of occurrence of the external cause; Y99.8 Other external cause status; Z83.3 Family history of diabetes mellitus; Z91.018 Allergy to other foods; Z79.899 Other long term (current) drug therapy
CPT/HCPCS: 36415; 73590; 73600; 76000; 80053; 81025; 82306; 85027; 96374; 96376; A7015; C1713; C1769; J0330; J0696; J0780; J1100; J1200; J1885; J2001; J2270; J2405; J2704; J3010; J7120; 97116; 97530; 97535; 99285-25